=== PATIENT | male | born 1965 | race Caucasian/White ===

== ENCOUNTER 2023-06-08 09:31 | Outpatient (CLI) | payer MEDICARE, MEDICAID, SELFPAY ==
--- NOTE | 2023-06-08 | EST_ITS ---
Patient Info Name: Urban Valenzuela Age: 57 years : 1965 Gender: Male Ht: 68 in Wt: 247 lbs BSA: 2.37 m2 HR: 67 bpm BP: 123 / 77 mmHg Heart Rhythm: Sinus Rhythm Exam Date: 06/08/2023 10:27 AM Exam Location: Echo Lab Patient Status: Outpatient Admit Date: 06/08/2023 Staff Ordering Physician: Brandin, Ela NEWBY Attending Provider: BrandinEla Exercise Technologist: Aislinn Christine CT Exercise Physician: Donny Perales MD Exam Type: CA stress atif w NM Study Info Indications R07.9 - Chest pain, unspecified A regadenoson stress test was performed. Summary 1. No abnormal ST/T wave changes diagnostic of ischemia with Lexiscan. 2. No arrhythmias were observed during the examination. 3. Please correlate with nuclear medicine images, reported separately. 4. Stress test supervised by and interpreted by Donny Perales MD. Protocol: Lexiscan Stress ECG Details Stage: REST Duration (min): 1 min : 0 sec HR (bpm): 66 SBP (mmHg): 123 DBP (mmHg): 77 Stage: REST Duration (min): 7 min : 48 sec HR (bpm): 68 SBP (mmHg): 123 DBP (mmHg): 77 Stage: STAGE 1 Duration (min): 0 min : 59 sec HR (bpm): 85 SBP (mmHg): 120 DBP (mmHg): 74 Stage: RECOVERY Duration (min): 1 min : 0 sec HR (bpm): 83 SBP (mmHg): 120 DBP (mmHg): 74 Stage: RECOVERY Duration (min): 2 min : 0 sec HR (bpm): 85 SBP (mmHg): 120 DBP (mmHg): 74 Stage: RECOVERY Duration (min): 3 min : 0 sec HR (bpm): 82 SBP (mmHg): 112 DBP (mmHg): 68 Stage: RECOVERY Duration (min): 3 min : 2 sec HR (bpm): 82 SBP (mmHg): 112 DBP (mmHg): 68 Rest HR: 68 bpm Peak HR: 87 bpm Rest Sys BP: 123 mmHg Peak Sys BP: 120 mmHg Max Pred HR: 161 bpm % Max Pred HR: 54 % Target HR: 137 bpm Max RPP: 10,440 bpm*mmHg Total Time: 1 min : 0 sec Rest Campos BP: 77 mmHg Peak Campos BP: 74 mmHg Total Dose: 0.4 mg Resting ECG Sinus rhythm. Stress ECG Sinus rhythm. No abnormal ST/T wave changes diagnostic of ischemia with Lexiscan. Arrhythmias No arrhythmias were observed during the examination. Report Signatures
--- NOTE | ~2023-06-08 | NM_ITS ---
EXAMINATION: NM atif stress w perfusion DATE: 06/08/2023 12:04 CANDY ROLLER INDICATION: Chest pain TECHNIQUE: Rest images were obtained following intravenous administration of 9.8 mCi Tc99m tetrofosmi n (Myoview). The patient was infused intravenously with Lexiscan (regadenoson). Then, 31.5 mCi Tc99m tetrofosmin (Myoview) was administered intravenously, and stress images were obtained. Data was recon structed into short axis and horizontal and vertical long axis SPECT images. Gated SPECT images were also obtained. COMPARISON: None. FINDINGS: There is no definite reversible or fixed perfusion abnormality to suggest ischemia or infar ction. There is no segmental wall motion abnormality. Left ventricular ejection fraction measures 7 2%. IMPRESSION: 1. No definite ischemia or infarct. 2. Normal left ventricular ejection fraction measuring 72%. Reviewed, dictated and finalized at location B. Y ROLLER
== END 2023-06-08 09:32 | disposition home or self-care (01) ==
LOC: ANHCARD 09:32
PROVIDERS: Visit Provider Nurse Practitioner Family
DX: R07.9 Chest pain, unspecified (principal)
CPT/HCPCS: 78452; 93017; A9502; J2785

== ENCOUNTER 2023-06-13 07:54 | Emergency (ER) | payer MEDICARE, MEDICAID, SELFPAY ==
[2023-06-13 07:55] VITALS: BP 132/81; PULSE 63; RESP 18; TEMP 36.8; O2SAT 100
[2023-06-13 07:59] VITALS: PULSE 64
--- NOTE | 2023-06-13 07:59 | ECG_ITS ---
Measurements Intervals [place] Rate: 64 P: 52 DE: 189 QRS: -23 QRSD: 98 T: 22 QT: 399 QTc: 413 Interpretive Statements SINUS RHYTHM ANTEROSEPTAL MYOCARDIAL INFARCTION , OF INDETERMINATE AGE [40+ ms Q WAVE IN V1-V4] ABNORMAL ECG NO PREVIOUS ECG AVAILABLE FOR COMPARISON Electronically Signed On 06-13-2023 12:46:41 [facility] by Jamel Vázquez M.D.
[2023-06-13 08:38] LABS: Basophils Percent Auto 0.7 % (0.2-1.2); Eosinophils Absolute Auto 0.1 K/mm3 (0-0.3); Eosinophils Percent Auto 1.9 % (0-4.4); Hematocrit 41.6 % (42.0-52.0); Hemoglobin 13.2 g/dL (14.0-18.0); Immature Granulocyte Absolute 0.03 K/mm3 (0.00-0.031); Immature Granulocyte Percent A 0.5 % (0-0.5); Lymphocytes Absolute Auto 1.58 K/mm3 (0.9-3.2); Lymphocytes Percent Auto 27.5 % (18.3-44.2); Mean Corpuscular HGB Conc 31.7 g/dl (32-36); Mean Corpuscular Hemoglobin 31.9 pg (26-34); Mean Corpuscular Volume 100.5 fl (80-100); Mean Platelet Volume 9.3 fl (7.4-10.4); Monocytes Absolute Auto 0.3 K/mm3 (0.1-0.6); Monocytes Percent Auto 5.1 % (2.6-8.5); Neutrophils Absolute Auto 3.7 K/mm3 (1.3-6.7); Neutrophils Percent Auto 64.3 % (45.5-73.1); Platelet Count Result 173 k/mm3 (150-375); Red Blood Count 4.14 M/mm3 (4.6-6.20); Red Cell Distribution Width 13.2 % (11.5-14.5); White Blood Count 5.7 K/mm3 (4.5-10.0)
[2023-06-13 08:53] LABS: Alanine Aminotransferase 17 U/L (6-50); Alkaline Phosphatase 62 U/L (38-126); Anion Gap 5 mmol/L (8-16); Aspartate Amino Transferase 18 U/L (17-59); Bilirubin,Total 1.3 mg/dL (0.2-1.3); Blood Urea Nitrogen 17 mg/dL (9-20); Calcium 9.9 mg/dL (8.4-10.2); Carbon Dioxide 24 mmol/L (22-30); Chloride 114 mmol/L (98-107); Estimated Glomerular Filt Rate > 60; Glucose 105 mg/dL (65-110); Sodium 143 mmol/L (137-145)
[2023-06-13 09:10] LABS: Influenza A QL RT-PCR Negative (Negative); Influenza B QL RT-PCR Negative (Negative); SARS-CoV-2 RNA PCR Negative (Negative)
[2023-06-13 09:50] VITALS: BP 121/78; PULSE 64; RESP 14; O2SAT 100
--- NOTE | 2023-06-13 10:00 | ED.GENADULT ---
HPI - General Adult General Chief complaint: Seizure Stated complaint: pseudo-seizures Time Seen by Provider: 06/13/23 07:54 History of Present Illness HPI narrative: Patient is a 57-year-old male who presents ER with reports of having a pseudo-seizure. He reports he has history of this in it occurred several times last night. He reports compliance with home medications were reports he has mild anxiety but no significant change in stress. He has no additional complaints at this time. Related Data Home Medications Medication Instructions Recorded Confirmed aripiprazole 30 mg tablet 30 mg PO QHS 03/09/23 04/19/23 atorvastatin 10 mg tablet 10 mg PO DAILY 03/09/23 04/19/23 docusate sodium 100 mg capsule 100 mg PO DAILY 03/09/23 04/19/23 lithium carbonate 300 mg capsule 300 mg PO BID 03/09/23 04/19/23 meclizine 12.5 mg tablet 12.5 mg PO TID PRN 03/09/23 04/19/23 montelukast 10 mg tablet 10 mg PO DAILY 03/09/23 04/19/23 polyethylene glycol ea miscellaneous 03/09/23 04/19/23 acetaminophen 500 mg capsule 500 mg PO Q6H PRN 03/14/23 04/19/23 albuterol sulfate 90 mcg/actuation 1 inh inhalation Q4H 03/14/23 04/19/23 aerosol inhaler alfuzosin 10 mg tablet,extended 10 mg PO DAILY 03/14/23 04/19/23 release 24 hr benzonatate 100 mg capsule 100 mg PO BID PRN 03/14/23 04/19/23 cholecalciferol (vitamin D3) 25 25 mcg PO DAILY 03/14/23 04/19/23 mcg (1,000 unit) capsule cranberry 400 mg capsule 400 mg PO DAILY 03/14/23 04/19/23 dextromethorphan-guaifenesin 30 1 tablet PO Q12H 03/14/23 04/19/23 mg-600 mg tablet extended [id number] hr (Mucinex DM) ferrous sulfate 325 mg (65 mg 325 mg PO DAILY 03/14/23 04/19/23 iron) tablet fluoxetine 20 mg capsule 20 mg PO DAILY 03/14/23 04/19/23 hydroxyzine HCl 25 mg tablet 25 mg PO BID PRN 03/14/23 04/19/23 loratadine 10 mg tablet 10 mg PO DAILY 03/14/23 04/19/23 melatonin 10 mg capsule 10 mg PO QHS 03/14/23 04/19/23 polyethylene glycol 3350 4 gram 4 g PO DAILY 03/14/23 04/19/23 oral powder packet Allergies Allergy/AdvReac Type Severity Reaction Status Date / Time penicillan Allergy Mild Redness of Uncoded 06/13/23 08:02 Skin Review of Systems Review of Systems: All systems reviewed & are unremarkable except as noted in HPI and below Constitutional: Constitutional: Reports no additional constitutional complaints ENT: Reports system reviewed and no additional complaints, except as documented Cardiovascular: Cardiovascular: Reports no additional cardiovascular complaints Respiratory: Respiratory: Reports no additional respiratory complaints Gastrointestinal: Gastrointestinal: Reports no additional gastrointestinal complaints Integumentary/Breasts: Skin/Breast: Reports system reviewed and no additional complaints, except as docu Neurologic: Reports system reviewed and no additional complaints, except as documented Psychiatric: Psychiatric: Reports anxiety and Denies depression PMFSH Past Medical History Medical History Bipolar disorder Hyperlipidemia Renal cyst Pt states he has a cyst on his right kidney and follows with urologist, EZEKIEL Aguirre at [facility] Schizoaffective disorder Social History Social History Social History: Patient smoked 1 ppd, quit 10 years ago Smoking status: Former smoker Exam Narrative: GENERAL: Well-appearing, well-nourished, and in no acute distress. HEAD: Normocephalic, atraumatic. EYES: PERRL and EOMI. ENT: Mucous membranes moist. CHEST: Clear to auscultation. No respiratory distress. HEART: Regular rate and rhythm. Normal peripheral pulses. ABDOMEN: Soft, nontender, nondistended. EXTREMITIES: Normal range of motion. No edema. SKIN: Warm, dry, no rash. NEURO: Alert and oriented x3. PSYCH: Normal mood and affect. Course Course Emergency Course: No lithium toxicity. Blood work reassuring. P
[2023-06-13 10:55] VITALS: BP 130/79; PULSE 62; RESP 15; O2SAT 100
== END 2023-06-13 10:57 | disposition home or self-care (01) ==
PROVIDERS: Emergency Provider Emergency Medicine
DX: R56.9 Unspecified convulsions (principal); E78.5 Hyperlipidemia, unspecified; Z87.891 Personal history of nicotine dependence; Z20.822 Contact with and (suspected) exposure to COVID-19
CPT/HCPCS: 36415; 80053; 80178; 85025; 87636; 93005; 99284

== ENCOUNTER 2023-07-09 20:06 | Inpatient (IN) | payer MEDICARE, MEDICAID, SELFPAY ==
[2023-07-09] VITALS (15 sets, daily range): BP systolic 115–131; BP diastolic 75–90; PULSE 72–81; RESP 14–21; TEMP 36.6; O2SAT 92–98
--- NOTE | ~2023-07-09 | XR_ITS ---
XR abdomen gastric tube rechec DATE: 07/11/2023 09:51 INDICATION: Nasogastric tube check TECHNIQUE: Portable supine AP view on 07/11/2023 at 0927 hours COMPARISON: None FINDINGS: The NG tube is in the gastric fundus, the proximal side-port situated at the diaphragmatic hiatus. Tube advancement is recommended. Nonspecific bowel gas pattern. IMPRESSION: Recommend advancement of NG tube Reviewed, dictated and finalized at Location [facility]. Reviewed, dictated and finalized at location B. TRICITY TRADING ANALYST
--- NOTE | ~2023-07-09 | CT_ITS ---
CT of the Abdomen and Pelvis: Indication: Abdominal pain Technique: 2.5 mm axial scans were obtained through the abdomen and pelvis following intravenous adm inistration of 100 cc of Omnipaque 350. Dose reduction technique was used on this scan by utilizing a utomated exposure control and iterative reconstruction technique. The dose-length product (DLP) was 1 381.51 mGy-cm. Findings: Scans through the lung bases are unremarkable. The liver, spleen, pancreas, gallbladder, adrenals and kidneys are within normal limits. No evidence of aortic aneurysm. No lymphadenopathy. Proximal small bowel loops are relatively dilated, with a distended stomach. No clear-cut transition point identified. Distal small bowel loops are minimally prominent, with fluid-filled. Images through the pelvis were performed. Urinary bladder unremarkable. No pelvic mass seen. No ascit es. 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 Impression: Findings suggestive of early or partial small bowel obstruction versus possibly generalized ileus. Co rrelate clinically. No well-defined transition point identified. Reviewed, dictated and finalized at [facility]. LINE TECHNICIAN Impression: Findings suggestive of early or partial small bowel obstruction versus possibly generalized ileus. Correlate clinically. No well-defined transition point iden tified.
--- NOTE | ~2023-07-09 | XR_ITS ---
XR abdomen gastric tube insert DATE: 07/09/2023 22:29 INDICATION: NG tube insertion TECHNIQUE: Portable AP view of upper abdomen on 07/09/2023 at 2227 hours COMPARISON: None FINDINGS: The nasogastric tube extends approximately 13 cm distal to the diaphragmatic hiatus, the di stal tip situated in the mid to upper body of stomach approximately. IMPRESSION: NG tube in stomach Reviewed, dictated and finalized at [facility]. Reviewed, dictated and finalized at location A. ESPONDENCE REPRESENTATIVE IMPRESSION: NG tube in stomach
--- NOTE | ~2023-07-09 | XR_ITS ---
Supine and upright views of the abdomen Clinical history: Small bowel obstruction Findings: Bowel gas pattern is nonspecific, with oral contrast and large bowel. No evidence for obstr uction or free air. No abnormal mass lesion or calcification is seen. Osseous structures are intact. Impression: Nonspecific bowel gas pattern. Reviewed, dictated and finalized at [facility]. S WAREHOUSE DRIVER Impression: Nonspecific bowel gas pattern.
--- NOTE | ~2023-07-09 | XR_ITS ---
EXAMINATION: XR sm bowel follow through DATE: 07/11/2023 11:17 INDICATION: Small bowel obstruction. TECHNIQUE: Oral contrast was administered, and a time course of radiographs of the abdomen was obtain ed. Fluoroscopy of the small bowel was not performed. Fluoroscopy exposure time was 0 minutes. The to karie number of images was 5. COMPARISON: CT abdomen and pelvis 07/09/2023 FINDINGS: The nasogastric tube tip is in the stomach. There are no dilated loops of bowel. Transit time from th e stomach to proximal colon was approximately 1 hour 45 minutes. IMPRESSION: 1. Normal small bowel series. Reviewed, dictated and finalized at location A. CIATE PROJECT MANAGER
--- NOTE | ~2023-07-09 | XR_ITS ---
Supine and upright views of the abdomen Clinical history: Small bowel obstruction Findings: Distal tip of NG tube is probably present at the GE junction. Bowel gas pattern is nonspeci fic. No evidence for obstruction or free air. No abnormal mass lesion or calcification is seen. [place] us structures are intact. Impression: Probable distal tip of NG tube seen at the GE junction region. If NG tube is in place, then advanceme nt into the stomach is recommended. Nonspecific bowel gas pattern. Reviewed, dictated and finalized at [facility]. CARGOMAN Impression: Probable distal tip of NG tube seen at the GE junction region. If NG tube is in place, then advancement into the stomach is recommended. Nonspecific bowel gas pattern.
--- NOTE | 2023-07-09 20:15 | ECG_ITS ---
Measurements Intervals [place] Rate: 77 P: 48 CA: 184 QRS: -36 QRSD: 96 T: 41 QT: 369 QTc: 418 Interpretive Statements SINUS RHYTHM LEFT AXIS DEVIATION POOR R WAVE PROGRESSION, CONSIDER ANTERIOR INFARCT BASELINE ARTIFACT- I, II, AVR ABNORMAL ECG COMPARED TO ECG 06/13/2023 08:01:35 LEFT-AXIS DEVIATION NOW PRESENT Electronically Signed On 07-10-2023 9:20:45 GRAVITY PROSPECTING OPERATOR HELPER by Kendall Brower D.O.
--- NOTE | 2023-07-09 20:51 | ED.ABDPAIN ---
HPI - Abdominal Pain General Chief Complaint: Abdominal Pain Stated Complaint: abd pain and nausea Time Seen by Provider: 07/09/23 20:24 History of Present Illness HPI narrative: Patient is a 57-year-old gentleman who presents to emergency department with chief complaint of abdominal pain. The patient reports this evening started having discomfort in his abdomen reports that his abdomen feels more distended than normal and reports the pain is periumbilical to epigastric. The patient reports he has not been passing gas reports he has not had a bowel movement since yesterday the patient reports no prior intra-abdominal surgeries Related Data Home Medications Medication Instructions Recorded Confirmed aripiprazole 30 mg tablet 30 mg PO QHS 03/09/23 06/20/23 atorvastatin 10 mg tablet 10 mg PO DAILY 03/09/23 06/20/23 docusate sodium 100 mg capsule 100 mg PO DAILY 03/09/23 06/20/23 lithium carbonate 300 mg capsule 300 mg PO BID 03/09/23 06/20/23 meclizine 12.5 mg tablet 12.5 mg PO TID PRN 03/09/23 06/20/23 montelukast 10 mg tablet 10 mg PO DAILY 03/09/23 06/20/23 polyethylene glycol ea miscellaneous 03/09/23 06/20/23 acetaminophen 500 mg capsule 500 mg PO Q6H PRN 03/14/23 06/20/23 albuterol sulfate 90 mcg/actuation 1 inh inhalation Q4H 03/14/23 06/20/23 aerosol inhaler alfuzosin 10 mg tablet,extended 10 mg PO DAILY 03/14/23 06/20/23 release 24 hr benzonatate 100 mg capsule 100 mg PO BID PRN 03/14/23 06/20/23 cholecalciferol (vitamin D3) 25 25 mcg PO DAILY 03/14/23 06/20/23 mcg (1,000 unit) capsule cranberry 400 mg capsule 400 mg PO DAILY 03/14/23 06/20/23 dextromethorphan-guaifenesin 30 1 tablet PO Q12H 03/14/23 06/20/23 mg-600 mg tablet extended [id number] hr (Mucinex DM) ferrous sulfate 325 mg (65 mg 325 mg PO DAILY 03/14/23 06/20/23 iron) tablet fluoxetine 20 mg capsule 20 mg PO DAILY 03/14/23 06/20/23 hydroxyzine HCl 25 mg tablet 25 mg PO BID PRN 03/14/23 06/20/23 loratadine 10 mg tablet 10 mg PO DAILY 03/14/23 06/20/23 melatonin 10 mg capsule 10 mg PO QHS 03/14/23 06/20/23 polyethylene glycol 3350 4 gram 4 g PO DAILY 03/14/23 06/20/23 oral powder packet Allergies Allergy/AdvReac Type Severity Reaction Status Date / Time penicillan Allergy Mild Redness of Uncoded 06/20/23 10:26 Skin Review of Systems Review of Systems: A 10 system review of systems was completed on the patient and is negative except for what is stated in the HPI. Nursing and ancillary documentation was reviewed. [facility] Past Medical History Medical History Bipolar disorder Hyperlipidemia Renal cyst Pt states he has a cyst on his right kidney and follows with urologist, EZEKIEL Aguirre at [facility] Schizoaffective disorder Social History Social History Social History: Patient smoked 1 ppd, quit 10 years ago Smoking status: Former smoker Exam Narrative: GENERAL: Well-appearing, well-nourished, and in no acute distress. HEAD: Normocephalic, atraumatic. EYES: PERRLA and EOMI. ENT: Nares clear, no rhinorrhea or epistaxis. Mucous membranes moist. NECK: Supple. CHEST: Clear to auscultation. No respiratory distress. HEART: Regular rate and rhythm. No murmur heard. Normal peripheral pulses. ABDOMEN: Soft, diffuse tenderness, mildly distended, normal active bowel sounds. EXTREMITIES: Normal range of motion. No edema. SKIN: Warm, dry, no rash. NEURO: No focal deficits. Alert and oriented x3. PSYCH: Normal mood and affect. Course Vital Signs Vital signs: Vital Signs Temperature 36.6 C 07/09/23 20:07 Pulse Rate 79 07/09/23 20:07 Respiratory Rate 19 07/09/23 20:07 Blood Pressure 125/76 07/09/23 20:07 Pulse Oximetry 96 07/09/23 20:07 Oxygen Delivery Room Air 07/09/23 20:07 Temperature 36.6 C 07/09/23 20:07 Pulse Rate 72 07/09/23 22:00 Respi
[2023-07-09] MEDS: SODIUM CHLORIDE 0.9% IV 1,000 ML 999 ML IV CONT (21:00)
[2023-07-09] MEDS: ONDANSETRON INJ 4 MG/2 ML VIAL IV PUSH (21:00)
[2023-07-09] MEDS: MORPHINE SULFATE (*CRX) 4 MG/ML INJ IV PUSH (21:00)
[2023-07-09 21:11] LABS: Basophils Percent Auto 0.4 % (0.2-1.2); Eosinophils Absolute Auto 0.2 K/mm3 (0-0.3); Eosinophils Percent Auto 1.6 % (0-4.4); Hematocrit 44.8 % (42.0-52.0); Hemoglobin 14.4 g/dL (14.0-18.0); Immature Granulocyte Absolute 0.04 K/mm3 (0.00-0.031); Immature Granulocyte Percent A 0.4 % (0-0.5); Lymphocytes Absolute Auto 1.65 K/mm3 (0.9-3.2); Mean Corpuscular HGB Conc 32.1 g/dl (32-36); Mean Corpuscular Hemoglobin 32.1 pg (26-34); Mean Corpuscular Volume 99.8 fl (80-100); Mean Platelet Volume 9.5 fl (7.4-10.4); Monocytes Absolute Auto 0.5 K/mm3 (0.1-0.6); Neutrophils Absolute Auto 6.8 K/mm3 (1.3-6.7); Neutrophils Percent Auto 74.6 % (45.5-73.1); Platelet Count Result 176 k/mm3 (150-375); Red Blood Count 4.49 M/mm3 (4.6-6.20); Red Cell Distribution Width 12.9 % (11.5-14.5); White Blood Count 9.2 K/mm3 (4.5-10.0)
[2023-07-09 21:21] LABS: Alanine Aminotransferase 25 U/L (6-50); Albumin Level 4.1 g/dL (3.5-5.1); Alkaline Phosphatase 73 U/L (38-126); Anion Gap 9 mmol/L (8-16); Aspartate Amino Transferase 24 U/L (17-59); Bilirubin,Total 1.1 mg/dL (0.2-1.3); Blood Urea Nitrogen 15 mg/dL (9-20); Calcium 10.6 mg/dL (8.4-10.2); Carbon Dioxide 24 mmol/L (22-30); Chloride 109 mmol/L (98-107); Estimated CRCL calculation 73 ml/min; Estimated Glomerular Filt Rate > 60; Glucose 124 mg/dL (65-110); Lipase 66 U/L (23-300); Potassium 4.3 mmol/L (3.4-5.0); Sodium 142 mmol/L (137-145)
[2023-07-09 21:22] LABS: Lactic Acid Reflex 1.3 mmol/L (0.7-2.0)
[2023-07-09 21:33] LABS: Troponin I < 0.012 ng/mL (0.000-0.034)
[2023-07-09 22:01] LABS: Appearance Urine Clear (Clear); Bilirubin Urine Negative (Negative); Blood Urine Negative (Negative); Color Urine Yellow (Yellow); Glucose Urine UA Negative (Negative); Ketones Urine Negative (Negative); Leukocyte Esterase Ur Negative LEU/UL (Negative); Nitrate Urine Negative (Negative); Protein Urine Negative (Negative); Urobilinogen Urine 0.2 mg/dL (<2.0); pH Urine 6.5 (5.0-9.0)
[2023-07-09 22:04] LABS: Specific Grav Ur 1.044 (1.001-1.035)
[2023-07-09 22:05] LABS: Add Urine Microscopic? NO
[2023-07-09] MEDS: SODIUM CHLORIDE 0.9% IV 1,000 ML 125 ML IV CONT (23:03)
[2023-07-10] MEDS: ONDANSETRON INJ 4 MG/2 ML VIAL IV PUSH (00:15)
[2023-07-10 00:32] VITALS: BP 130/76; PULSE 69; RESP 16; TEMP 36.3; O2SAT 98; BMI 39.6
[2023-07-10] MEDS: SODIUM CHLORIDE 0.9% IV 1,000 ML 125 ML IV CONT ×3 (00:43→20:33)
[2023-07-10 02:26] VITALS: BMI 39.6
[2023-07-10 03:14] VITALS: BP 150/84; PULSE 70; RESP 16; TEMP 36.8; O2SAT 99
--- NOTE | 2023-07-10 03:30 | PC.NURSE ---
Pt admitted for pancreatitis, ng tube in place, low-intermittent suction. Pt is a&o x4, able to make needs known. Pt's abdomen is distended and bowel sounds high pitched, pt is NPO. Pt denied any farther needs. Medication reconciliation completed. Pt was re-oriented to the room, unit, call light use, when to call for help. No further questions at this time.
--- NOTE | 2023-07-10 03:32 | PM.IMHP ---
H&P: HPI History of Present Illness Date/Time: 07/10/23 03:32 Chief Complaint: Abdominal pain Narrative: 57-year-old male with medical history of obesity, obstructive sleep apnea BiPAP use, bipolar disorder, schizoaffective disorder and prior umbilical hernia repair who presented [facility] the ER [facility] with sudden onset of abdominal distension and pain. Review of Systems Review of Systems: 12 systems were reviewed with pertinent positives and negatives per HPI. Except as documented in the HPI, all other systems were reviewed and are negative. 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 He reports nocturia. [facility] Past Medical History Medical History (Updated 07/10/23 @ 05:20 by Romy Landrum DO) Bipolar disorder Hyperlipidemia COREY (obstructive sleep apnea) Uses BiPAP Renal cyst Pt states he has a cyst on his right kidney and follows with urologist, EZEKIEL Aguirre at [facility] Schizoaffective disorder Surgical History Surgical History (Updated 07/10/23 @ 03:34 by Romy Landrum DO) History of tonsillectomy and adenoidectomy History of umbilical hernia repair Family History Family History (Updated 07/10/23 @ 03:34 by Romy Landrum DO) Other Unknown family medical history Social History Social History (Updated 07/10/23 @ 03:36 by Romy Landrum DO) Social History: 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 He is now on disability and lives in a retirement as part of the adapt program for those that are psychiatrically ill. Code status: Full code Surrogate decision maker: Brother Smoking packs per day: 0.5 Smoking cigarettes per day: 10.0 Years smoked: 30 Smoking pack-years: 15.00 Smoking status: Former smoker Tobacco type: cigarettes Second hand tobacco smoke exposure: No Alcohol intake: never Substance use: never Substance use type: does not use Spiritual care concerns: No Meds Home Medications and Allergies Home Medications Medication Instructions Recorded Confirmed Type aripiprazole 30 mg tablet 30 mg PO QHS 03/09/23 07/10/23 History atorvastatin 10 mg tablet 10 mg PO DAILY 03/09/23 07/10/23 History docusate sodium 100 mg capsule 100 mg PO DAILY 03/09/23 07/10/23 History lithium carbonate 300 mg capsule 300 mg PO TID 03/09/23 07/10/23 History meclizine 12.5 mg tablet 12.5 mg PO TID 03/09/23 07/10/23 History montelukast 10 mg tablet 10 mg PO DAILY 03/09/23 07/10/23 History acetaminophen 500 mg capsule 1,000 mg PO TID PRN Pain (Scale 03/14/23 07/10/23 History Score 1-3) albuterol sulfate 90 mcg/actuation 1 inh inhalation Q6H PRN Wheezing 03/14/23 07/10/23 History aerosol inhaler alfuzosin 10 mg tablet,extended 10 mg PO DAILY 03/14/23 07/10/23 History release 24 hr benzonatate 100 mg capsule 100 mg PO TID PRN Cough 03/14/23 07/10/23 History cholecalciferol (vitamin D3) 25 50 mcg PO DAILY 03/14/23 07/10/23 History mcg (1,000 unit) capsule cranberry 400 mg capsule 400 mg PO BID 03/14/23 07/10/23 History dextromethorphan-guaifenesin 30 1 tablet PO Q12H 03/14/23 07/10/23 History mg-600 mg tablet extended [id number] hr (Mucinex DM) ferrous sulfate 325 mg (65 mg 325 mg PO DAILY 03/14/23 07/10/23 History iron) tablet fluoxetine 20 mg capsule 30 mg PO DAILY 03/14/23 07/10/23 History hydroxyzine HCl 25 mg tablet 25 mg PO BID PRN Anxiety 03/14/23 07/10/23 History loratadine 10 mg tablet 10 mg PO DAILY 03/14/23 07/10/23 History melatonin 10 mg capsule 10 mg PO QHS 03/14/23 07/10/23 History polyethylene glycol 3350 4 gram 4 g PO DAILY 03/14/23 07/10/23 History oral powder packet calcium carbonate 200 mg calcium 500 mg PO Q12H 07/10/23 07/10/23 History (500 mg) chewable tablet (Tristin-Gest Antacid) paliperidone 9 mg tablet,extended 9 mg PO DAILY 07/10/23 07/10/23 History release 24 hr sennosides 8.6 mg-docusate sodium 8.6 tab-cap PO DAILY 07/10/23 07/10/23 History 50 mg t
[2023-07-10 03:47] VITALS: PULSE 70; RESP 16; O2SAT 99
[2023-07-10] MEDS: PANTOPRAZOLE SODIUM IV 40 MG VIAL IV PUSH (09:44)
[2023-07-10] MEDS: ENOXAPARIN 40 MG/0.4 ML SYRINGE SUB-Q (09:44)
[2023-07-10] MEDS: MORPHINE SULFATE (*CRX) 2 MG/ML INJ IV PUSH ×2 (09:45→14:40)
--- NOTE | 2023-07-10 12:46 | PM.IMPN ---
Progress Note: A&P Assessment and Plan (1) Partial small bowel obstruction: Code(s): K56.600 - Partial intestinal obstruction, unspecified as to cause Status: Acute Assessment and Plan: Patient has partial small-bowel obstruction. NG tube was placed General surgery is consulted. IV fluid hydration. Pain medications have been ordered as needed. Nausea medications also provided. (2) Acute distention of stomach: Code(s): K31.0 - Acute dilatation of stomach Status: Acute Assessment and Plan: Likely due to partial small-bowel obstruction. (3) Asthma: Qualifiers: Asthma severity: unspecified severity Asthma persistence: unspecified Asthma complication type: uncomplicated Qualified Code(s): J45.909 - Unspecified asthma, uncomplicated Code(s): J45.909 - Unspecified asthma, uncomplicated Status: Acute Assessment and Plan: stable (4) Schizoaffective disorder: Qualifiers: Schizoaffective disorder type: bipolar Qualified Code(s): F25.0 - Schizoaffective disorder, bipolar type Code(s): F25.9 - Schizoaffective disorder, unspecified Status: Acute Assessment and Plan: Patient does have bipolar disorder with with schizophrenic affect. Patient's psychiatric medications are currently on hold due to his bowel obstruction. Would be beneficial for the patient resume his home psychiatric medicines as soon as possible. Patient is not having any suicidal or homicidal ideation. However he does still have active hallucinations. (5) Bipolar disorder: Qualifiers: Active/Remission status: currently active Current bipolar episode type: depressed Current episode severity: severe Psychotic features: with psychotic features Qualified Code(s): F31.5 - Bipolar disorder, current episode depressed, severe, with psychotic features Code(s): F31.9 - Bipolar disorder, unspecified Status: Acute Assessment and Plan: Continue home medication when possible (6) COREY (obstructive sleep apnea): Code(s): G47.33 - Obstructive sleep apnea (adult) (pediatric) Status: Acute Assessment and Plan: Patient does have obstructive sleep apnea but his BiPAP is on hold due to vomiting and presence of NG. We will monitor. Subjective Date/time seen: 07/10/23 12:46 Interval history: patient continued to have abdominal pain. NG tube is in place and draining a orange frothy liquid. He says that he is passing gas but has not had any bowel movement. Abdomen is still pretty distended and tender to palpation. Decreased bowel sounds. He denies any nausea or vomiting today. Exam Narrative: GENERAL: Comfortable, no acute distress HENMT: moist mucous membranes , NG tube in place EYES: EOM intact b/l NECK: no lymphadenopathy RESPIRATORY: clear to auscultation CARDIO: RRR GI: soft, Distended, mildly tender palpation, hypoactive bowel sounds SKIN: no rashes EXTREMITIES: no edema, redness or tenderness Objective Data Vital Signs Vital Signs: Vital Signs - 24 hr 07/09/23 20:07 07/09/23 20:12 07/09/23 20:13 Temperature 97.8 F Pulse Rate 79 81 Respiratory Rate 19 21 H Blood Pressure 125/76 125/76 Pulse Oximetry 96 95 97 Oxygen Delivery Room Air 07/09/23 20:15 07/09/23 20:16 07/09/23 20:30 Temperature Pulse Rate 79 78 81 Respiratory Rate 14 20 16 Blood Pressure 131/81 Pulse Oximetry 98 95 95 Oxygen Delivery 07/09/23 20:31 07/09/23 20:45 07/09/23 20:46 Temperature Pulse Rate 80 Respiratory Rate 19 Blood Pressure 126/77 121/76 Pulse Oximetry 95 95 95 Oxygen Delivery 07/09/23 21:00 07/09/23 21:01 07/09/23 21:15 Temperature Pulse Rate 75 Respiratory Rate 19 Blood Pressure 131/75 Pulse Oximetry 97 96 97 Oxygen Delivery 07/09/23 21:16 07/09/23 21:54 07/09/23 22:00 Temperature Puls
--- NOTE | 2023-07-10 14:25 | PM.CNGS ---
Assessment and Plan Assessment and plan (1) Partial small bowel obstruction: Code(s): K56.600 - Partial intestinal obstruction, unspecified as to cause Status: Acute Assessment and Plan: Patient symptomatically doing better already. I reviewed his CT scan as well as his plain films from this morning. Nasogastric tube is in good position. CT does suggest small-bowel obstruction. At this time, recommend continued nasogastric suction, IV fluids, p.r.n. analgesics, along with daily exam low, labs, plain film of the abdomen. Hopefully this will resolve without the need for laparotomy. Thank you for asking me to see this patient in consultation. (2) Acute distention of stomach: Code(s): K31.0 - Acute dilatation of stomach Status: Acute Assessment and Plan: Noted on CT scan. Placement of the nasogastric tube in the emergency room brought back over 1000 cc immediately. This is at least partially relieved (3) Bipolar disorder: Qualifiers: Active/Remission status: currently active Current bipolar episode type: depressed Current episode severity: severe Psychotic features: with psychotic features Qualified Code(s): F31.5 - Bipolar disorder, current episode depressed, severe, with psychotic features Code(s): F31.9 - Bipolar disorder, unspecified Status: Chronic (4) Schizoaffective disorder: Qualifiers: Schizoaffective disorder type: bipolar Qualified Code(s): F25.0 - Schizoaffective disorder, bipolar type Code(s): F25.9 - Schizoaffective disorder, unspecified Status: Chronic (5) COREY (obstructive sleep apnea): Code(s): G47.33 - Obstructive sleep apnea (adult) (pediatric) Status: Chronic Assessment and Plan: Sees pulmonology (6) Asthma: Qualifiers: Asthma severity: unspecified severity Asthma persistence: unspecified Asthma complication type: uncomplicated Qualified Code(s): J45.909 - Unspecified asthma, uncomplicated Code(s): J45.909 - Unspecified asthma, uncomplicated Status: Chronic (7) Morbid obesity: Code(s): E66.01 - Morbid (severe) obesity due to excess calories Status: Chronic History of Present Illness Consult details Consult date: 07/10/23 Reason for consult: abdominal pain Requesting physician: jC Paul MD Narrative: Patient is a 57-year-old man with mental illness. He carries a diagnosis of bipolar affective disorder as well as schizoaffective disorder. He is morbidly obese and resides in [facility]. He is also known to have obstructive sleep apnea and asthma. Review of his medications show that he takes multiple colonic stimulants including polyethylene glycol, Senokot S, and docusate. He came to the emergency room yesterday after having severe abdominal pain with distention. He also had nausea and vomiting. His last bowel movement was day before yesterday. He was evaluated in the emergency room and possible small bowel obstruction was noted on CT scan. I reviewed this CT scan and he had a massive amount of fluid it is stomach. Placement of a nasogastric tube in the emergency room quickly brought back well over 1 L of fluid. Patient has been admitted and given IV fluids as well as p.r.n. analgesics. He tells me this morning that his belly is not as painful and does not feel as distended as it did yesterday. He feels he is improved from last night. He denies ever having had a bowel obstruction such as this in the past. Records show that he has had an umbilical hernia repair in the past. Review of Systems Review of Systems: All systems reviewed & are unremarkable except as noted in HPI and below (HPI and those items noted below) Constitutional: Constitutional: Denies chills and Denies fever(s) Cardiovascular: Cardiovascular: Denies chest pain, Denies diaphoresis, Denies dyspnea and Denies paroxysmal nocturnal dyspnea Respiratory: Respi
[2023-07-10 16:14] VITALS: BP 117/69; PULSE 67; RESP 24; TEMP 36.1; O2SAT 96
[2023-07-10 19:22] VITALS: BP 114/68; PULSE 71; RESP 18; TEMP 37.3; O2SAT 93
[2023-07-10 20:00] VITALS: PULSE 71; RESP 18; O2SAT 93
[2023-07-11 06:15] LABS: Hematocrit 40.4 % (42.0-52.0); Hemoglobin 12.7 g/dL (14.0-18.0); Mean Corpuscular HGB Conc 31.4 g/dl (32-36); Mean Corpuscular Volume 101.8 fl (80-100); Mean Platelet Volume 9.6 fl (7.4-10.4); Platelet Count Result 150 k/mm3 (150-375); Red Blood Count 3.97 M/mm3 (4.6-6.20); Red Cell Distribution Width 12.9 % (11.5-14.5); White Blood Count 7.3 K/mm3 (4.5-10.0)
[2023-07-11 06:37] LABS: Alanine Aminotransferase 18 U/L (6-50); Albumin Level 3.4 g/dL (3.5-5.1); Alkaline Phosphatase 64 U/L (38-126); Anion Gap 5 mmol/L (8-16); Aspartate Amino Transferase 19 U/L (17-59); Bilirubin,Total 1.5 mg/dL (0.2-1.3); Blood Urea Nitrogen 12 mg/dL (9-20); Calcium 9.9 mg/dL (8.4-10.2); Carbon Dioxide 26 mmol/L (22-30); Chloride 114 mmol/L (98-107); Estimated CRCL calculation 80 ml/min; Estimated Glomerular Filt Rate > 60; Glucose 88 mg/dL (65-110); Sodium 145 mmol/L (137-145)
[2023-07-11] MEDS: SODIUM CHLORIDE 0.9% IV 1,000 ML 125 ML IV CONT (07:53)
[2023-07-11] MEDS: LORATADINE 10 MG TABLET PO (11:29)
[2023-07-11] MEDS: FERROUS SULFATE 325 MG TABLET DR PO (11:29)
[2023-07-11] MEDS: MECLIZINE HCL 12.5 MG TABLET PO ×3 (11:29→18:15)
[2023-07-11] MEDS: FLUoxetine HCL 20 MG CAPSULE 30 MG PO (11:29)
[2023-07-11] MEDS: FAMOTIDINE 20 MG/2 ML VIAL IV PUSH (11:31)
[2023-07-11] MEDS: ENOXAPARIN 40 MG/0.4 ML SYRINGE SUB-Q (11:31)
[2023-07-11] MEDS: LITHIUM CARBONATE 300 MG CAPSULE PO ×3 (11:31→18:15)
[2023-07-11] MEDS: KCL 20 MEQ/D5/0.45% SOD CHL 1,000 ML 100 ML IV CONT ×2 (12:02→22:32)
--- NOTE | 2023-07-11 12:44 | PM.IMPN ---
Progress Note: A&P Assessment and Plan (1) Partial small bowel obstruction: Code(s): K56.600 - Partial intestinal obstruction, unspecified as to cause Status: Acute Assessment and Plan: Patient has partial small-bowel obstruction. Small-bowel follow-through with no acute abnormality. NG tube removed. Diet advanced as tolerated Pain medications have been ordered as needed. Nausea medications also provided. (2) Acute distention of stomach: Code(s): K31.0 - Acute dilatation of stomach Status: Acute Assessment and Plan: Likely due to partial small-bowel obstruction. (3) Asthma: Qualifiers: Asthma severity: unspecified severity Asthma persistence: unspecified Asthma complication type: uncomplicated Qualified Code(s): J45.909 - Unspecified asthma, uncomplicated Code(s): J45.909 - Unspecified asthma, uncomplicated Status: Chronic Assessment and Plan: stable (4) Schizoaffective disorder: Qualifiers: Schizoaffective disorder type: bipolar Qualified Code(s): F25.0 - Schizoaffective disorder, bipolar type Code(s): F25.9 - Schizoaffective disorder, unspecified Status: Chronic Assessment and Plan: Patient does have bipolar disorder with with schizophrenic affect. Patient is not having any suicidal or homicidal ideation. However he does still have active hallucinations. Medications restarted (5) Bipolar disorder: Qualifiers: Active/Remission status: currently active Current bipolar episode type: depressed Current episode severity: severe Psychotic features: with psychotic features Qualified Code(s): F31.5 - Bipolar disorder, current episode depressed, severe, with psychotic features Code(s): F31.9 - Bipolar disorder, unspecified Status: Chronic Assessment and Plan: Continue home medication when possible (6) COREY (obstructive sleep apnea): Code(s): G47.33 - Obstructive sleep apnea (adult) (pediatric) Status: Chronic Assessment and Plan: Patient does have obstructive sleep apnea but his BiPAP is on hold due to vomiting and presence of NG. We will monitor. Subjective Date/time seen: 07/11/23 12:44 Interval history: patient states that his pain is much better today. Patient small-bowel follow-through it was. NG tube was removed and patient was started on full if patient does with the diet can have bowel movements he may be able to discharge. Exam Narrative: GENERAL: Comfortable, no acute distress HENMT: moist mucous membranes , NG tube in place EYES: EOM intact b/l NECK: no lymphadenopathy RESPIRATORY: clear to auscultation CARDIO: RRR GI: soft, distended, nontender, bowel sounds x4 SKIN: no rashes EXTREMITIES: no edema, redness or tenderness Objective Data Vital Signs Vital Signs: Vital Signs - 24 hr 07/10/23 16:14 07/10/23 19:22 07/10/23 20:00 Temperature 97.0 F L 99.2 F Pulse Rate 67 71 71 Respiratory Rate 24 H 18 18 Blood Pressure 117/69 114/68 Pulse Oximetry 96 93 93 Oxygen Delivery Room Air Intake/Output Intake/Output: Intake & Output 07/08/23 07/09/23 07/10/23 07/11/23 23:59 23:59 23:59 23:59 Intake Total 1000 3000 1000 Output Total 1400 400 Balance 1000 1600 600 Meds/Results Medications: Active Medications Generic Name Dose Route Start Last Admin Trade Name Freq PRN Reason Stop Dose Admin Albuterol 1 puff 07/10/23 03:31 Albuterol Sulfate (*Sp) Aerosol 1 Puff INHALATION Q6HRT PRN Wheezing Alfuzosin HCl 10 mg 07/10/23 09:00 07/11/23 11:31 Alfuzosin 10 Mg Er Tablet PO 10 mg DAILY TANYA Administration Aripiprazole 30 mg 07/11/23 21:00 Aripiprazole 10 Mg Tablet PO QHS TANYA Enoxaparin Sodium 40 mg 07/10/23 09:00 07/11/23 11:31 Enoxaparin 40 Mg/0.4 Ml Syringe SUB-Q 40 mg DAILY TANYA Administration Famotid
[2023-07-11 14:00] VITALS: BP 143/74; PULSE 84; RESP 18; TEMP 36.8; O2SAT 97
--- NOTE | 2023-07-11 17:02 | PM.PNGS ---
Progress Note: A&P Assessment and Plan (1) Partial small bowel obstruction: Code(s): K56.600 - Partial intestinal obstruction, unspecified as to cause Status: Acute Assessment and Plan: Improved. Plain films look normal. NG tube as slid back into the esophagus. Will advance back into the stomach. Will go ahead with water-soluble contrast small-bowel series today. If has normal transit time, will DC NG and start liquids. Doing better. Subjective Subjective Date/Time Seen: 07/11/23 17:02 Patient reports: no new complaints, pain is less, flatus, no bowel movement and afebrile Review of Systems Review of Systems: All systems reviewed & are unremarkable except as noted in HPI and below (HPI) Exam Const: General: comfortable and no acute distress Orientation/consciousness: patient oriented x3 GI: Inspection: normal to inspection, non-distended and obesity GI Palp: Yes Soft to palpation, No Tenderness to palpation present (GI), No Guarding due to palpation present (GI) and No Rebound tenderness present Auscultation: normal bowel sounds Neuro: General: patient oriented x3 and no focal motor deficits Extrem: General: no calf tenderness and no edema Objective Data Vital Signs Vital Signs: Vital Signs - 24 hr 07/10/23 19:22 07/10/23 20:00 07/11/23 11:30 Temperature 37.3 C Pulse Rate 71 71 Respiratory Rate 18 18 Blood Pressure 114/68 Pulse Oximetry 93 93 Oxygen Delivery Room Air Room Air 07/11/23 14:00 Temperature 36.8 C Pulse Rate 84 Respiratory Rate 18 Blood Pressure 143/74 H Pulse Oximetry 97 Oxygen Delivery Intake/Output Intake/Output: Intake & Output 07/08/23 07/09/23 07/10/23 07/11/23 23:59 23:59 23:59 23:59 Intake Total 1000 3000 1000 Output Total 1400 400 Balance 1000 1600 600 Meds/Results Medications: Active Medications Generic Name Dose Route Start Last Admin Trade Name Freq PRN Reason Stop Dose Admin Albuterol 1 puff 07/10/23 03:31 Albuterol Sulfate (*Sp) Aerosol 1 Puff INHALATION Q6HRT PRN Wheezing Alfuzosin HCl 10 mg 07/10/23 09:00 07/11/23 11:31 Alfuzosin 10 Mg Er Tablet PO 10 mg DAILY TANYA Administration Aripiprazole 30 mg 07/11/23 21:00 Aripiprazole 10 Mg Tablet PO QHS TANYA Enoxaparin Sodium 40 mg 07/10/23 09:00 07/11/23 11:31 Enoxaparin 40 Mg/0.4 Ml Syringe SUB-Q 40 mg DAILY TANYA Administration Famotidine 20 mg 07/11/23 09:00 07/11/23 11:31 Famotidine 20 Mg/2 Ml Vial IV PUSH 20 mg Q12HR TANYA Administration Ferrous Sulfate 325 mg 07/11/23 09:00 07/11/23 11:29 Ferrous Sulfate [address] PO 325 mg DAILY TANYA Administration Fluoxetine HCl 30 mg 07/11/23 09:00 07/11/23 11:29 Fluoxetine Hcl 20 Mg Capsule PO 30 mg DAILY TANYA Administration Hydroxyzine HCl 25 mg 07/11/23 08:25 Hydroxyzine Hcl 25 Mg Tablet PO BID PRN Anxiety Potassium Chloride/Dextrose/Sod Cl 1,000 mls @ 100 mls/hr 07/11/23 07:55 07/11/23 12:02 Kcl 20 Meq/D5/0.45% Sod Chl IV CONT 100 mls/hr .Q10H TANYA Administration [place] Carbonate 300 mg 07/11/23 09:00 07/11/23 13:55 [place] Carbonate 300 Mg Capsule PO 300 mg TID TANYA Administration Loratadine 10 mg 07/11/23 09:00 07/11/23 11:29 Loratadine 10 Mg Tablet PO 10 mg DAILY TANYA Administration Meclizine HCl 12.5 mg 07/11/23 09:00 07/11/23 13:55 Meclizine Hcl 12.5 Mg Tablet PO 12.5 mg TID TANYA Administration Miscellaneous Information 1 each 07/11/23 00:01 Palpiperidone Tablets Nonformulary, Can Patient Bring From Home? XX 08/10/23 00:00 [facility] Morphine Sulfate 2 mg 07/10/23 03:30 07/10/23 14:40 Morphine Sulfate (*Crx) 2 Mg/Ml Inj IV PUSH 2 mg Q4H PRN Administration Pain Rated 7-10 Non-Formulary Medication 9 mg 07/11/23 09:00 Paliperidone PO 08/10/23 08:59 DAILY [facility] Ondansetron HCl 4 mg 07/09/23 22:37 07/10/23 00:15 Ondansetron Inj
[2023-07-11 19:35] VITALS: BP 128/67; PULSE 58; RESP 18; TEMP 36.5; O2SAT 100
[2023-07-11] MEDS: FAMOTIDINE 20 MG TABLET PO (20:28)
[2023-07-11] MEDS: ARIPiprazole 10 MG TABLET 30 MG PO (20:28)
[2023-07-11] MEDS: hydrOXYzine HCL 25 MG TABLET PO (20:34)
[2023-07-12 04:20] VITALS: BP 103/62; PULSE 51; RESP 17; TEMP 36.3; O2SAT 97
[2023-07-12 06:08] LABS: Hematocrit 37.3 % (42.0-52.0); Hemoglobin 11.4 g/dL (14.0-18.0); Mean Corpuscular HGB Conc 30.6 g/dl (32-36); Mean Corpuscular Hemoglobin 31.6 pg (26-34); Mean Corpuscular Volume 103.3 fl (80-100); Mean Platelet Volume 9.8 fl (7.4-10.4); Platelet Count Result 135 k/mm3 (150-375); Red Blood Count 3.61 M/mm3 (4.6-6.20); Red Cell Distribution Width 12.9 % (11.5-14.5)
[2023-07-12 06:13] LABS: Anion Gap 4 mmol/L (8-16); Blood Urea Nitrogen 9 mg/dL (9-20); Calcium 9.7 mg/dL (8.4-10.2); Carbon Dioxide 26 mmol/L (22-30); Chloride 109 mmol/L (98-107); Estimated CRCL calculation 88 ml/min; Estimated Glomerular Filt Rate > 60; Glucose 106 mg/dL (65-110); Potassium 3.8 mmol/L (3.4-5.0); Sodium 139 mmol/L (137-145)
[2023-07-12] MEDS: LORATADINE 10 MG TABLET PO (09:24)
[2023-07-12] MEDS: FERROUS SULFATE 325 MG TABLET DR PO (09:24)
[2023-07-12] MEDS: MECLIZINE HCL 12.5 MG TABLET PO ×2 (09:24→13:09)
[2023-07-12] MEDS: LITHIUM CARBONATE 300 MG CAPSULE PO ×2 (09:24→13:08)
[2023-07-12] MEDS: FLUoxetine HCL 20 MG CAPSULE 30 MG PO (09:24)
[2023-07-12] MEDS: FAMOTIDINE 20 MG TABLET PO (09:24)
[2023-07-12] MEDS: ENOXAPARIN 40 MG/0.4 ML SYRINGE SUB-Q (09:25)
--- NOTE | 2023-07-12 12:08 | PM.DS ---
DS: Admitting Diagnosis Discharge Date 07/12/23 Admitting Diagnosis Small-bowel obstruction DS: Discharge Diagnosis Discharge Diagnosis (1) Partial small bowel obstruction: Code(s): K56.600 - Partial intestinal obstruction, unspecified as to cause Status: Acute (2) Acute distention of stomach: Code(s): K31.0 - Acute dilatation of stomach Status: Acute (3) Asthma: Qualifiers: Asthma severity: unspecified severity Asthma persistence: unspecified Asthma complication type: uncomplicated Qualified Code(s): J45.909 - Unspecified asthma, uncomplicated Code(s): J45.909 - Unspecified asthma, uncomplicated Status: Chronic (4) Schizoaffective disorder: Qualifiers: Schizoaffective disorder type: bipolar Qualified Code(s): F25.0 - Schizoaffective disorder, bipolar type Code(s): F25.9 - Schizoaffective disorder, unspecified Status: Chronic (5) Bipolar disorder: Qualifiers: Active/Remission status: currently active Current bipolar episode type: depressed Current episode severity: severe Psychotic features: with psychotic features Qualified Code(s): F31.5 - Bipolar disorder, current episode depressed, severe, with psychotic features Code(s): F31.9 - Bipolar disorder, unspecified Status: Chronic (6) COREY (obstructive sleep apnea): Code(s): G47.33 - Obstructive sleep apnea (adult) (pediatric) Status: Chronic DS: Summary Hospital Course Hospital Course: This is a 47-year-old male with medical history of obesity, obstructive sleep apnea BiPAP use, bipolar disorder, schizoaffective disorder and prior umbilical hernia repair who presented to the ER via EMS from [facility] with sudden onset of abdominal distension and pain. CT of the abdomen pelvis showed partial small bowel obstruction. NG tube was placed. General surgery consulted. Patient has small-bowel follow-through on 07/11/2023 and did not show any obstruction. Patient had bowel movement. After small-bowel follow-through NG tube was removed and patient's diet was advanced. He was able to tolerate his diet. He no longer having any abdominal pain. His labs and vital signs are stable he is medically clear for discharge at this time. Time Spent with Patient Time attestation: Total time spent providing and/or coordinating discharge services: Exam Narrative: GENERAL: Comfortable, no acute distress HENMT: moist mucous membranes , NG tube in place EYES: EOM intact b/l NECK: no lymphadenopathy RESPIRATORY: clear to auscultation CARDIO: RRR GI: soft, nontender, bowel sounds x4 SKIN: no rashes EXTREMITIES: no edema, redness or tenderness DS: Data Data Completed and Pending Labs on day of discharge: Labs from last 24 hours 07/12/23 05:33 WBC 6.0 RBC 3.61 L Hgb 11.4 L Hct 37.3 L MCV 103.3 H MCH 31.6 MCHC 30.6 L RDW 12.9 Plt Count 135 L MPV 9.8 Sodium 139 Potassium 3.8 Chloride 109 H Carbon Dioxide 26 Anion Gap 4 L BUN 9 Creatinine 1.00 Estim Creat Clear Calc 88 Estimated GFR > 60 Glucose 106 Calcium 9.7 Discharge Plan Discharge Consulting providers: Jose Urbano Discharging Clinician: Noemy Morejon Patient Disposition: NH Halfway/Asst Living Activity: as tolerated Diet: regular Discharge Instructions: Discharge disposition: Take medications as prescribed Monitor blood pressures Avoid social areas, you wear a mask when in social settings Encouraged to continue with yearly vaccinations Return to the emergency department if he developed sudden shortness of breath, chest pain, nausea, vomiting, upset stomach or intractable diarrhea Return to the emergency department if you develop fever greater than 100.4 Follow-up with the primary care physician within 1-2 weeks Thank you for [facility] for your healthcare needs Patient Instructions: Antibiotic Form
--- NOTE | 2023-07-12 13:05 | PM.PNGS ---
Progress Note: A&P Assessment and Plan (1) Partial small bowel obstruction: Code(s): K56.600 - Partial intestinal obstruction, unspecified as to cause Status: Acute Assessment and Plan: Small bowel series showed normal transit to the colon. NG tube removed yesterday and his diet has been advanced to solids this morning. Bowels are moving. Okay from our standpoint to discharge the patient when okay with the primary service. Will sign off at this time. Follow-up only as needed. Plan I have discussed the patient's case and plan of care with Dr. Urbano. Subjective Subjective Date/Time Seen: 07/12/23 13:05 Patient reports: no new complaints, feels better, pain is less, tolerating a regular diet, flatus and bowel movement Interval history: Patient tolerating a low fiber diet. He has some mild abdominal cramping in his central abdomen, but much improved from admission. No vomiting. He did have some mild nausea after eating lunch, but he reports this improved. Multiple bowel movements since his SBFT yesterday. Exam Const: General: comfortable and no acute distress Orientation/consciousness: patient oriented x3 GI: Inspection: obesity GI Palp: Yes Soft to palpation, No Tenderness to palpation present (GI), No Guarding due to palpation present (GI) and No Rebound tenderness present Auscultation: normal bowel sounds Objective Data Vital Signs Vital Signs: Vital Signs - 24 hr 07/11/23 14:00 07/11/23 19:35 07/12/23 04:20 Temperature 98.2 F 97.7 F 97.4 F L Pulse Rate 84 58 L 51 L Respiratory Rate 18 18 17 Blood Pressure 143/74 H 128/67 103/62 Pulse Oximetry 97 100 97 Oxygen Delivery 07/12/23 09:24 Temperature Pulse Rate Respiratory Rate Blood Pressure Pulse Oximetry Oxygen Delivery Room Air Intake/Output Intake/Output: Intake & Output 07/09/23 07/10/23 07/11/23 07/12/23 23:59 23:59 23:59 23:59 Intake Total 1000 3000 2440 1040 Output Total 1400 400 Balance 1000 1600 2040 1040 Meds/Results Medications: Active Medications Generic Name Dose Route Start Last Admin Trade Name Freq PRN Reason Stop Dose Admin Albuterol 1 puff 07/10/23 03:31 Albuterol Sulfate (*Sp) Aerosol 1 Puff INHALATION Q6HRT PRN Wheezing Alfuzosin HCl 10 mg 07/10/23 09:00 07/12/23 09:24 Alfuzosin 10 Mg Er Tablet PO 10 mg DAILY TANYA Administration Aripiprazole 30 mg 07/11/23 21:00 07/11/23 20:28 Aripiprazole 10 Mg Tablet PO 30 mg QHS TANYA Administration Enoxaparin Sodium 40 mg 07/10/23 09:00 07/12/23 09:25 Enoxaparin 40 Mg/0.4 Ml Syringe SUB-Q 40 mg DAILY TANYA Administration Famotidine 20 mg 07/11/23 21:00 07/12/23 09:24 Famotidine 20 Mg Tablet PO 20 mg Q12HR TANYA Administration Ferrous Sulfate 325 mg 07/11/23 09:00 07/12/23 09:24 Ferrous Sulfate [address] PO 325 mg DAILY TANYA Administration Fluoxetine HCl 30 mg 07/11/23 09:00 07/12/23 09:24 Fluoxetine Hcl 20 Mg Capsule PO 30 mg DAILY TANYA Administration Hydroxyzine HCl 25 mg 07/11/23 08:25 07/11/23 20:34 Hydroxyzine Hcl 25 Mg Tablet PO 25 mg BID PRN Administration Anxiety Potassium Chloride/Dextrose/Sod Cl 1,000 mls @ 100 mls/hr 07/11/23 07:55 07/11/23 22:32 Kcl 20 Meq/D5/0.45% Sod Chl IV CONT 100 mls/hr .Q10H TANYA Administration [place] Carbonate 300 mg 07/11/23 09:00 07/12/23 09:24 [place] Carbonate 300 Mg Capsule PO 300 mg TID TANYA Administration Loratadine 10 mg 07/11/23 09:00 07/12/23 09:24 Loratadine 10 Mg Tablet PO 10 mg DAILY TANYA Administration Meclizine HCl 12.5 mg 07/11/23 09:00 07/12/23 09:24 Meclizine Hcl 12.5 Mg Tablet PO 12.5 mg TID TANYA Administration Miscellaneous Information 1 each 07/11/23 00:01 07/12/23 01:02 Palpiperidone Tablets Nonformulary, Can Patient Bring From Home? XX 08/10/23 00:00 Not Given CLARIFY TANYA Morphine Sulfate 2 mg 07/10/23 03:30 07/10/23 14:40 Morphin
[2023-07-12 14:00] VITALS: BP 105/63; PULSE 53; RESP 16; TEMP 36.4; O2SAT 97
[2023-07-12 14:19] LABS: SARS-CoV-2 RNA PCR Negative (Negative)
== END 2023-07-12 16:40 | DRG 389 ==
LOC: ANHED 22:32 → ANH3MEDSUR 23:26 → ANH2MED 23:42
PROVIDERS: Surgery; Admitting Provider Internal Medicine; Emergency Provider Emergency Medicine; Visit Provider Internal Medicine Critical Care Medicine
DX: K56.600 Partial intestinal obstruction, unspecified as to cause (principal); K31.0 Acute dilatation of stomach; J45.909 Unspecified asthma, uncomplicated; F25.0 Schizoaffective disorder, bipolar type; R73.03 Prediabetes; G47.33 Obstructive sleep apnea (adult) (pediatric); E66.01 Morbid (severe) obesity due to excess calories; E78.5 Hyperlipidemia, unspecified; N28.1 Cyst of kidney, acquired; R63.1 Polydipsia; Z68.39 Body mass index [BMI] 39.0-39.9, adult; Z11.52 Encounter for screening for COVID-19; Z87.891 Personal history of nicotine dependence
CPT/HCPCS: 36415; 74018; 74177; 74250; 80048; 80053; 81003; 83605; 83690; 84484; 85025; 85027; 87635; 93005; 96361; 96374; 96375; 99285; A9270; C9113; G0378; J1650; J2270; J2405; J3480; J7030; Q9967

== ENCOUNTER 2023-10-21 11:11 | Outpatient (CLI) | payer MEDICARE, MEDICAID, SELFPAY ==
--- NOTE | ~2023-10-21 | MR_ITS ---
MRI of the lumbar spine Clinical History: Back pain Technique: Axial T2-weighted images, and sagittal T1-weighted, T2-weighted, and T2 fat-sat images wer e acquired. Findings: There are bilateral L5 pars interarticularis defects, with 9 mm anterolisthesis of L5 over S1. No suspicious bone marrow signal abnormality seen. At L1-L2, there is mild degenerative disc change. There is minimal disc bulge and moderate facet arth ropathy. No central canal stenosis or neural foraminal narrowing. At L2-L3, there is minimal disc bulge and moderate facet arthropathy. No central canal stenosis. Ther e is mild right neural foraminal narrowing. Left neural foramen preserved. At L3-L4, there is mild disc bulge and advanced facet arthropathy. No central canal stenosis. There i s mild to moderate bilateral neural foraminal narrowing. At L4-L5, there is diffuse disc bulge and advanced facet arthropathy. There is mild central canal arlen nosis. There is moderate to severe left neural foraminal narrowing, and moderate to severe right neur al foraminal narrowing. At L5-S1, there is advanced degenerative disc narrowing. There is advanced facet arthropathy. No cent ral canal stenosis. There is severe left neural foraminal, otherwise, and mild to moderate right neur al foraminal compromise. Paravertebral soft tissues are unremarkable. Impression: Bilateral L5 pars interarticularis defects, with 9 mm anterolisthesis of L5 over S1. Advanced degenerative spondylosis, as above. Reviewed, dictated and finalized at [facility]. Impression: Bilateral L5 pars interarticularis defects, with 9 mm anterolisthesis of L5 ove r S1. Advanced degenerative spondylosis, as above.
== END 2023-10-21 11:12 | disposition home or self-care (01) ==
LOC: ANHIMG 11:16
PROVIDERS: Visit Provider Nurse Practitioner Family
DX: M47.817 Spondylosis without myelopathy or radiculopathy, lumbosacral region (principal); M47.896 Other spondylosis, lumbar region
CPT/HCPCS: 72148

== ENCOUNTER 2025-04-23 00:40 | Day surgery (SDC) | payer OTHER, SELFPAY ==
[2025-02-26 14:45] VITALS: BMI 35.1
[2025-04-18 11:33] VITALS: BMI 36.3
--- NOTE | 2025-04-23 07:42 | P.PNAN_ITS ---
Anes - Initial Pre Proc Eval Procedure: Operation Date: 04/23/25 08:30 Proposed Procedures p Diagnostic Colonoscopy - Michael Yoder MD Date/Time: 04/23/25 07:42 Surgeon: Michael Yoder MD Pre Op Diagnosis: Noninfective gastroenteritis and colitis, unspecif Patient Data Age: 59 Gender: M Height: 1.73 m Weight: 108.5 kg Allergies Allergy/AdvReac Type Severity Reaction Status Date / Time Penicillins Allergy Mild Redness of Verified 04/23/25 07:42 Skin lactose AdvReac Intermediate Diarrhea Verified 04/23/25 07:42 Home Medications ?Medication ?Instructions ?Recorded ?Confirmed ?Type aripiprazole 30 mg tablet 30 mg PO QHS 03/09/23 History atorvastatin 10 mg tablet 10 mg PO DAILY 03/09/2302/02 History docusate sodium 100 mg capsule 100 mg PO DAILY 3 02/26/25 History meclizine 12.5 mg tablet 12.5 mg PO TID 03/09/2302/02 History acetaminophen 500 mg capsule 1,000 mg PO TID PRN Pain (Scale 03/14/23 02/26/25 History Score 1-3) albuterol sulfate 90 mcg/actuation 1 inh inhalation Q6 H PRN Wheezing 03/14/23 02/26/25 History aerosol inhaler alfuzosin 10 mg tablet,extended 10 mg PO DAILY 3 02/26/25 History release 24 hr dextromethorphan-guaifenesin 30 1 tablet PO Q12H 03/1402/26/25 History mg-600 mg tablet extended [id number] hr (Mucinex DM) ferrous sulfate 325 mg (65 mg 325 mg PO BID 03/14/23 1 History iron) tablet loratadine 10 mg tablet 10 mg PO DAILY 03/14/2304/03 History melatonin 10 mg capsule 10 mg PO QHS 03/14/23 History paliperidone 9 mg tablet,extended 9 mg PO DAILY 02/26/25 History release 24 hr sennosides 8.6 mg-docusate sodium 8.6 tab-cap PO DAILY 07/10/23 02/26/25 History 50 mg tablet (Senexon-S) cholecalciferol (vitamin D3) 25 3,000 unit PO DAILY 02/26/25 History mcg (1,000 unit) capsule fluoxetine 20 mg capsule 20 mg PO QPM 08/24/23 History Lactobacillus acidophilus 10 mg PO DAILY 02/26/2504/03 History (Acidophilus capsule) alprazolam 0.25 mg tablet 0.25 mg PO TID PRN anxiety 0 02/26/25 02/26/25 History aripiprazole 20 mg tablet 20 mg PO DAILY 02/26/2504/03 History bisacodyl 10 mg rectal suppository 10 mg RECTAL DAILY PRN constipation 02/26/25 02/26/25 History d-mannose 500 mg capsule 500 mg PO DAILY 02/26/25 History deutetrabenazine 18 mg 18 mg PO DAILY 02/26/2504/03 History tablet,extended release 24 hr (Austedo XR) fluoxetine 40 mg capsule 40 mg PO QPM 02/26/25 History fluticasone propionate 50 1 spray intranasal Q12H 02/0202/26/25 History mcg/actuation nasal spray,suspension furosemide 20 mg tablet 20 mg PO DAILY 02/26/2502/02 History lumateperone 42 mg capsule 42 mg PO DAILY 02/26/25 History (Caplyta) mirabegron 50 mg tablet,extended 50 mg PO Q24H 5 02/26/25 History release 24 hr (Myrbetriq) oxybutynin chloride 10 mg 10 mg PO DAILY 02/26/2502/02 History tablet,extended release 24 hr polyethylene glycol 3350 17 17 g PO DAILY 02/26/25 History gram/dose oral powder potassium chloride 20 mEq 20 meq PO DAILY 02/26/25 History tablet,extended release(part/cryst) deutetrabenazine 24 mg 24 mg PO DAILY 04/18/2504/03 History tablet,extended release 24 hr (Austedo XR) trazodone 50 mg tablet 50 mg PO HS 04/18/25 5 History Patient hx anesthesia problems: none Family hx anesthesia problems: none Results Review: All pre-operative results and documents have been reviewed as part of the pre- operative evaluation. 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 He is now on disability and lives in a group home as part of the adapt program for those that are psychiatrically ill. Code status: Full code Surrogate decision maker: Brother Smoking packs per day: 0.5 Smoking cigarettes per day: 10.0 Years smoked: 30 Smoking pack-years: 15.00 Smoking status: Former smoker Tobacco type: cigarettes Second hand tobacco smoke exposure: No Alcohol intake: never Substance use: never Substance use type: does not use Living arrangements: group home Spiritual care concerns: No Anes - Eval Final PreProcedure Day of Procedure 04/23/25 07:42 Patient weight: obese Lungs: normal air movement Airway: Mallampati scale class II and special considerations (Teeth in poor condition, none loose. ) Neurological: alert and oriented Last oral intake: >/= 8 hours ASA classification: III Emergent: no Anesthetic plan: proceed Anesthesia type and monitoring: general GIVS and standard monitoring Results Review: All pre-operative results and documents have been reviewed as part of the pre- operative evaluation. COREY not currently compiant w CPAP, ex smoker, uncertain of when he quit, hyperlipidemia. Informed Consent: The patient's anesthetic plan and its attendant risks and benefits were discussed with the patient/family/POA. Questions were solicited and answers provided to the satisfaction of the patient/family/POA.
--- NOTE | 2025-04-23 07:42 | WPDANESEPPF ---
Anes - Initial Pre Proc Eval Procedure: Operation Date: 04/23/25 08:30 Proposed Procedures p Diagnostic Colonoscopy - Michael Yoder MD Date/Time: 04/23/25 07:42 Surgeon: Michael Yoder MD Pre Op Diagnosis: Noninfective gastroenteritis and colitis, unspecif Patient Data Age: 59 Gender: M Height: 1.73 m Weight: 108.5 kg Allergies Allergy/AdvReac Type Severity Reaction Status Date / Time Penicillins Allergy Mild Redness of Verified 04/23/25 07:42 Skin lactose AdvReac Intermediate Diarrhea Verified 04/23/25 07:42 Home Medications ?Medication ?Instructions ?Recorded ?Confirmed ?Type aripiprazole 30 mg tablet 30 mg PO QHS 03/09/23 04/18/25 History atorvastatin 10 mg tablet 10 mg PO DAILY 03/09/23 02/26/25 History docusate sodium 100 mg capsule 100 mg PO DAILY 03/09/23 02/26/25 History meclizine 12.5 mg tablet 12.5 mg PO TID 03/09/23 02/26/25 History acetaminophen 500 mg capsule 1,000 mg PO TID PRN Pain (Scale 03/14/23 02/26/25 History Score 1-3) albuterol sulfate 90 mcg/actuation 1 inh inhalation Q6H PRN Wheezing 03/14/23 02/26/25 History aerosol inhaler alfuzosin 10 mg tablet,extended 10 mg PO DAILY 03/14/23 02/26/25 History release 24 hr dextromethorphan-guaifenesin 30 1 tablet PO Q12H 03/14/23 02/26/25 History mg-600 mg tablet extended [id number] hr (Mucinex DM) ferrous sulfate 325 mg (65 mg 325 mg PO BID 03/14/23 04/18/25 History iron) tablet loratadine 10 mg tablet 10 mg PO DAILY 03/14/23 04/18/25 History melatonin 10 mg capsule 10 mg PO QHS 03/14/23 04/18/25 History paliperidone 9 mg tablet,extended 9 mg PO DAILY 07/10/23 02/26/25 History release 24 hr sennosides 8.6 mg-docusate sodium 8.6 tab-cap PO DAILY 07/10/23 02/26/25 History 50 mg tablet (Senexon-S) cholecalciferol (vitamin D3) 25 3,000 unit PO DAILY 08/24/23 02/26/25 History mcg (1,000 unit) capsule fluoxetine 20 mg capsule 20 mg PO QPM 08/24/23 04/18/25 History Lactobacillus acidophilus 10 mg PO DAILY 02/26/25 04/18/25 History (Acidophilus capsule) alprazolam 0.25 mg tablet 0.25 mg PO TID PRN anxiety 02/26/25 02/26/25 History aripiprazole 20 mg tablet 20 mg PO DAILY 02/26/25 04/18/25 History bisacodyl 10 mg rectal suppository 10 mg RECTAL DAILY PRN constipation 02/26/25 02/26/25 History d-mannose 500 mg capsule 500 mg PO DAILY 02/26/25 02/26/25 History deutetrabenazine 18 mg 18 mg PO DAILY 02/26/25 04/18/25 History tablet,extended release 24 hr (Austedo XR) fluoxetine 40 mg capsule 40 mg PO QPM 02/26/25 04/18/25 History fluticasone propionate 50 1 spray intranasal Q12H 02/26/25 02/26/25 History mcg/actuation nasal spray,suspension furosemide 20 mg tablet 20 mg PO DAILY 02/26/25 02/26/25 History lumateperone 42 mg capsule 42 mg PO DAILY 02/26/25 02/26/25 History (Caplyta) mirabegron 50 mg tablet,extended 50 mg PO Q24H 02/26/25 02/26/25 History release 24 hr (Myrbetriq) oxybutynin chloride 10 mg 10 mg PO DAILY 02/26/25 02/26/25 History tablet,extended release 24 hr polyethylene glycol 3350 17 17 g PO DAILY 02/26/25 02/26/25 History gram/dose oral powder potassium chloride 20 mEq 20 meq PO DAILY 02/26/25 02/26/25 History tablet,extended release(part/cryst) deutetrabenazine 24 mg 24 mg PO DAILY 04/18/25 04/18/25 History tablet,extended release 24 hr (Austedo XR) trazodone 50 mg tablet 50 mg PO HS 04/18/25 04/18/25 History Patient hx anesthesia problems: none Family hx anesthesia problems: none Results Review: All pre-operative results and documents have been reviewed as part of the pre-operative evaluation. 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 Code status: Full code Surrogate decision maker: Brother Smoking packs per day: 0.5 Smoking cigarettes per day: 10.0 Years smoked: 30 Smoking pack-years: 15.00 Smoking status: Former smoker Tobacco type: cigarettes Second hand tobacco smoke exposure: No Alcohol intake: never Substance use: never Substance use type: does not use Living arrangements: fpc Spiritual care concerns: No Anes - Eval Final PreProcedure Day of Procedure 04/23/25 07:42 Patient weight: obese Lungs: normal air movement Airway: Mallampati scale class II and special considerations (Teeth in poor condition, none loose. ) Neurological: alert and oriented Last oral intake: >/= 8 hours ASA classification: III Emergent: no Anesthetic plan: proceed Anesthesia type and monitoring: general GIVS and standard monitoring Results Review: All pre-operative results and documents have been reviewed as part of the pre-operative evaluation. COREY not currently compiant w CPAP, ex smoker, uncertain of when he quit, hyperlipidemia. Informed Consent: The patient's anesthetic plan and its attendant risks and benefits were discussed with the patient/family/POA. Questions were solicited and answers provided to the satisfaction of the patient/family/POA.
[2025-04-23 07:47] VITALS: BP 132/76; PULSE 22; RESP 22; TEMP 36.7; O2SAT 99; BMI 35.9
[2025-04-23] MEDS: LACTATED RINGERS 1,000 ML 150 ML IV CONT (07:55)
--- NOTE | 2025-04-23 08:17 | P.HP_ITS ---
H&P: HPI History of Present Illness Date/Time: 04/23/25 08:17 Chief Complaint: History of colon polyps Narrative: The patient has a history of colonic polyps, the last colonoscopy was unknown. There are no records and the patient is unable to provide an accurate timing or details. He mentions that he was told that the prep was insufficient and was rescheduled. Review of Systems Review of Systems: All systems reviewed & are unremarkable except as noted in HPI and below PMFSH Past Medical History Medical History Renal cyst Pt states he has a cyst on his right kidney and follows with urologist, [employer] Hernando Aguirre at [facility] Schizoaffective disorder Bipolar disorder COREY (obstructive sleep apnea) Uses BiPAP Surgical History Surgical History History of tonsillectomy and adenoidectomy History of umbilical hernia repair Family History Family History Other Unknown family medical history Social History Social History Social History: 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 Code status: Full code Surrogate decision maker: Brother Smoking packs per day: 0.5 Smoking cigarettes per day: 10.0 Years smoked: 30 Smoking pack-years: 15.00 Smoking status: Former smoker Tobacco type: cigarettes Second hand tobacco smoke exposure: No Alcohol intake: never Substance use: never Substance use type: does not use [place] [facility] Spiritual care concerns: No Meds Home Medications and Allergies Home Medications ?Medication ?Instructions ?Recorded ?Confirmed ?Type aripiprazole 30 mg tablet 30 mg PO QHS 03/09/23 History atorvastatin 10 mg tablet 10 mg PO DAILY 03/09/2304/04 History docusate sodium 100 mg capsule 100 mg PO DAILY 3 04/23/25 History meclizine 12.5 mg tablet 12.5 mg PO TID 03/09/2304/04 History acetaminophen 500 mg capsule 1,000 mg PO TID PRN Pain (Scale 03/14/23 04/23/25 History Score 1-3) albuterol sulfate 90 mcg/actuation 1 inh inhalation Q6 H PRN Wheezing 03/14/23 04/23/25 History aerosol inhaler alfuzosin 10 mg tablet,extended 10 mg PO DAILY 3 04/23/25 History release 24 hr dextromethorphan-guaifenesin 30 1 tablet PO Q12H 03/1404/23/25 History mg-600 mg tablet extended hr (Mucinex DM) ferrous sulfate 325 mg (65 mg 325 mg PO BID 03/14/23 History iron) tablet loratadine 10 mg tablet 10 mg PO DAILY 03/14/2304/03 History melatonin 10 mg capsule 10 mg PO QHS 03/14/23 History paliperidone 9 mg tablet,extended 9 mg PO DAILY 04/23/25 History release 24 hr sennosides 8.6 mg-docusate sodium 8.6 tab-cap PO DAILY 07/10/23 02/26/25 History 50 mg tablet (Senexon-S) cholecalciferol (vitamin D3) 25 3,000 unit PO DAILY 04/23/25 History mcg (1,000 unit) capsule fluoxetine 20 mg capsule 20 mg PO QPM 08/24/23 History Lactobacillus acidophilus 10 mg PO DAILY 02/26/2504/03 History (Acidophilus capsule) alprazolam 0.25 mg tablet 0.25 mg PO TID PRN anxiety 0 02/26/25 04/23/25 History aripiprazole 20 mg tablet 20 mg PO DAILY 02/26/2504/03 History bisacodyl 10 mg rectal suppository 10 mg RECTAL DAILY PRN constipation 02/26/25 04/23/25 History d-mannose 500 mg capsule 500 mg PO DAILY 02/26/25 History deutetrabenazine 18 mg 18 mg PO DAILY 02/26/2504/03 History tablet,extended release 24 hr (Austedo XR) fluoxetine 40 mg capsule 40 mg PO QPM 02/26/25 History fluticasone propionate 50 1 spray intranasal Q12H 02/0204/23/25 History mcg/actuation nasal spray,suspension furosemide 20 mg tablet 20 mg PO DAILY 02/26/2504/04 History lumateperone 42 mg capsule 42 mg PO DAILY 02/26/25 History (Caplyta) mirabegron 50 mg tablet,extended 50 mg PO Q24H 5 04/23/25 History release 24 hr (Myrbetriq) oxybutynin chloride 10 mg 10 mg PO DAILY 02/26/2504/04 History tablet,extended release 24 hr polyethylene glycol 3350 17 17 g PO DAILY 02/26/25 History gram/dose oral powder potassium chloride 20 mEq 20 meq PO DAILY 02/26/25 History tablet,extended release(part/cryst) deutetrabenazine 24 mg 24 mg PO DAILY 04/18/2504/04 History tablet,extended release 24 hr (Austedo XR) trazodone 50 mg tablet 50 mg PO HS 04/18/25 5 History Allergies Allergy/AdvReac Type Severity Reaction Status Date / Time Penicillins Allergy Mild Redness of Verified 04/23/25 07:42 Skin lactose AdvReac Intermediate Diarrhea Verified 04/23/25 07:42 Vital Signs Vital Signs - 24 hr 04/23/25 07:47 Temperature 98.1 F Pulse Rate 22 L Respiratory Rate 22 H Blood Pressure 132/76 Pulse Oximetry 99 Oxygen Delivery Room Air Assessment and Plan Assessment and plan (1) History of colonic polyps: Code(s): Z86.0100 - Personal history of colon polyps, unspecified Status: Acute Assessment and Plan: The patient is deemed a good candidate for the procedure. Consent signed. Will proceed.
--- NOTE | 2025-04-23 08:17 | PM.IMHP ---
H&P: HPI History of Present Illness Date/Time: 04/23/25 08:17 Chief Complaint: History of colon polyps Narrative: The patient has a history of colonic polyps, the last colonoscopy was unknown. There are no records and the patient is unable to provide an accurate timing or details. He mentions that he was told that the prep was insufficient and was rescheduled. Review of Systems Review of Systems: All systems reviewed & are unremarkable except as noted in HPI and below PMFSH Past Medical History Medical History Renal cyst Pt states he has a cyst on his right kidney and follows with urologist, [employer] Hernando Aguirre at [facility] Schizoaffective disorder Bipolar disorder COREY (obstructive sleep apnea) Uses BiPAP Surgical History Surgical History History of tonsillectomy and adenoidectomy History of umbilical hernia repair Family History Family History Other Unknown family medical history Social History Social History Social History: 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 Code status: Full code Surrogate decision maker: Brother Smoking packs per day: 0.5 Smoking cigarettes per day: 10.0 Years smoked: 30 Smoking pack-years: 15.00 Smoking status: Former smoker Tobacco type: cigarettes Second hand tobacco smoke exposure: No Alcohol intake: never Substance use: never Substance use type: does not use Living arrangements: fdc Spiritual care concerns: No Meds Home Medications and Allergies Home Medications ?Medication ?Instructions ?Recorded ?Confirmed ?Type aripiprazole 30 mg tablet 30 mg PO QHS 03/09/23 04/23/25 History atorvastatin 10 mg tablet 10 mg PO DAILY 03/09/23 04/23/25 History docusate sodium 100 mg capsule 100 mg PO DAILY 03/09/23 04/23/25 History meclizine 12.5 mg tablet 12.5 mg PO TID 03/09/23 04/23/25 History acetaminophen 500 mg capsule 1,000 mg PO TID PRN Pain (Scale 03/14/23 04/23/25 History Score 1-3) albuterol sulfate 90 mcg/actuation 1 inh inhalation Q6H PRN Wheezing 03/14/23 04/23/25 History aerosol inhaler alfuzosin 10 mg tablet,extended 10 mg PO DAILY 03/14/23 04/23/25 History release 24 hr dextromethorphan-guaifenesin 30 1 tablet PO Q12H 03/14/23 04/23/25 History mg-600 mg tablet extended [id number] hr (Mucinex DM) ferrous sulfate 325 mg (65 mg 325 mg PO BID 03/14/23 04/23/25 History iron) tablet loratadine 10 mg tablet 10 mg PO DAILY 03/14/23 04/18/25 History melatonin 10 mg capsule 10 mg PO QHS 03/14/23 04/23/25 History paliperidone 9 mg tablet,extended 9 mg PO DAILY 07/10/23 04/23/25 History release 24 hr sennosides 8.6 mg-docusate sodium 8.6 tab-cap PO DAILY 07/10/23 02/26/25 History 50 mg tablet (Senexon-S) cholecalciferol (vitamin D3) 25 3,000 unit PO DAILY 08/24/23 04/23/25 History mcg (1,000 unit) capsule fluoxetine 20 mg capsule 20 mg PO QPM 08/24/23 04/23/25 History Lactobacillus acidophilus 10 mg PO DAILY 02/26/25 04/18/25 History (Acidophilus capsule) alprazolam 0.25 mg tablet 0.25 mg PO TID PRN anxiety 02/26/25 04/23/25 History aripiprazole 20 mg tablet 20 mg PO DAILY 02/26/25 04/18/25 History bisacodyl 10 mg rectal suppository 10 mg RECTAL DAILY PRN constipation 02/26/25 04/23/25 History d-mannose 500 mg capsule 500 mg PO DAILY 02/26/25 04/23/25 History deutetrabenazine 18 mg 18 mg PO DAILY 02/26/25 04/18/25 History tablet,extended release 24 hr (Austedo XR) fluoxetine 40 mg capsule 40 mg PO QPM 02/26/25 04/23/25 History fluticasone propionate 50 1 spray intranasal Q12H 02/26/25 04/23/25 History mcg/actuation nasal spray,suspension furosemide 20 mg tablet 20 mg PO DAILY 02/26/25 04/23/25 History lumateperone 42 mg capsule 42 mg PO DAILY 02/26/25 04/23/25 History (Caplyta) mirabegron 50 mg tablet,extended 50 mg PO Q24H 02/26/25 04/23/25 History release 24 hr (Myrbetriq) oxybutynin chloride 10 mg 10 mg PO DAILY 02/26/25 04/23/25 History tablet,extended release 24 hr polyethylene glycol 3350 17 17 g PO DAILY 02/26/25 02/26/25 History gram/dose oral powder potassium chloride 20 mEq 20 meq PO DAILY 02/26/25 04/23/25 History tablet,extended release(part/cryst) deutetrabenazine 24 mg 24 mg PO DAILY 04/18/25 04/23/25 History tablet,extended release 24 hr (Austedo XR) trazodone 50 mg tablet 50 mg PO HS 04/18/25 04/23/25 History Allergies Allergy/AdvReac Type Severity Reaction Status Date / Time Penicillins Allergy Mild Redness of Verified 04/23/25 07:42 Skin lactose AdvReac Intermediate Diarrhea Verified 04/23/25 07:42 Vital Signs Vital Signs - 24 hr 04/23/25 07:47 Temperature 98.1 F Pulse Rate 22 L Respiratory Rate 22 H Blood Pressure 132/76 Pulse Oximetry 99 Oxygen Delivery Room Air Assessment and Plan Assessment and plan (1) History of colonic polyps: Code(s): Z86.0100 - Personal history of colon polyps, unspecified Status: Acute Assessment and Plan: The patient is deemed a good candidate for the procedure. Consent signed. Will proceed.
[2025-04-23] MEDS: SIMETHICONE ORAL SUSPENSION 20 MG/0.3 ML 30 ML BOTTLE 0.6 ML IRRIGATION (08:32)
--- NOTE | 2025-04-23 08:43 | S_PTH ---
PATIENT: Urban Valenzuela LOC: [facility] U#:[id number] AGE/SX: 59/M ROOM: RE04/23/[address]: Michael Yoder MD : 1965 BED: DIS: 04/23/2025 SPEC #: [id number] RECD: 04/23/25 10:02 STATUS: VIANEY RESheila #: [id number] ANDRES: 04/23/25 08:[address]: Michael Yoder DEPT: [facility] Surgical RECD BY: John Rodrigez ENTERED: 04/23/25 10:03 SP TYPE: Surgical OTHR DR: UNKNOWN,DOCTOR Tissues: A - Colon Polypectomy B - Colon Polypectomy Procedures: Hematoxylin and Eosin Stain Gross and Microscopic Level 4
[2025-04-23 08:44] VITALS: BP 80/46; PULSE 60; RESP 21; O2SAT 96
[2025-04-23 08:54] VITALS: BP 98/50; PULSE 64; RESP 25; O2SAT 98
[2025-04-23 09:04] VITALS: BP 123/68; PULSE 67; RESP 16; O2SAT 100
== END 2025-04-23 09:26 | disposition home or self-care (01) ==
PROVIDERS: Visit Provider Internal Medicine Gastroenterology
PROC: 0DJD8ZZ Inspection of Lower Intestinal Tract, Via Natural or Artificial Opening Endoscopic (ICD-10-PCS; CPT 45378; principal; 2025-04-23 08:30)
DX: Z12.11 Encounter for screening for malignant neoplasm of colon (principal); D12.2 Benign neoplasm of ascending colon; D12.5 Benign neoplasm of sigmoid colon; E78.5 Hyperlipidemia, unspecified; F25.9 Schizoaffective disorder, unspecified; F31.9 Bipolar disorder, unspecified; G47.33 Obstructive sleep apnea (adult) (pediatric); E66.9 Obesity, unspecified; Z68.35 Body mass index [BMI] 35.0-35.9, adult; Z79.51 Long term (current) use of inhaled steroids; Z98.890 Other specified postprocedural states; Z87.891 Personal history of nicotine dependence
CPT/HCPCS: 45385; 88305; J2003; J2704; J7120